=== PATIENT | female | born 1980 | race Hispanic/Latino ===

== ENCOUNTER 2020-08-06 15:12 | Emergency (ER) | payer MEDICAID, SELFPAY ==
[2020-08-06] MEDS ORDERED: Bupivacaine 0.5% 10 ML VIAL ONE (15:23)
[2020-08-06] MEDS ORDERED: Boostrix 0.5 ML (Tdap) VIAL ONE (15:24)
[2020-08-06] MEDS ORDERED: Bacitracin 1 PK ONE (15:35)
--- NOTE | 2020-08-06 16:14 | RAD ---
Radiograph left second digit 3 views: HISTORY: 39-year-old female with laceration to index finger FINDINGS: Soft tissue detail and 5 bony detail of distal portion of finger obscured by overlying bandages. No f racture or dislocation or metallic foreign body. IMPRESSION: No fracture
== END 2020-08-06 16:41 | disposition home or self-care (01) ==
LOC: ERS 15:12
DX: S61.211A Laceration without foreign body of left index finger without damage to nail, initial encounter (principal); W26.0XXA Contact with knife, initial encounter; Y92.009 Unspecified place in unspecified non-institutional (private) residence as the place of occurrence of the external cause
CPT/HCPCS: 12001; 90471; 90715; J3490

== ENCOUNTER 2020-08-16 12:17 | Emergency (ER) | payer SELFPAY | END 2020-08-16 12:49 | disposition home or self-care (01) | LOC: ERS 12:17 | DX: S61.211D Laceration without foreign body of left index finger without damage to nail, subsequent encounter (principal); W45.8XXD Other foreign body or object entering through skin, subsequent encounter ==